=== PATIENT | male | born 1990 | race Caucasian/White ===

== ENCOUNTER 2021-08-07 23:46 | Emergency (ER) | payer SELFPAY ==
[2021-08-08] VITALS: TEMP 98.1; BMI 28.3
[2021-08-08] MEDS ORDERED: OXYMETAZOLINE 0.05% NASAL SOLUTION 15 ML BOTTLE NS ONE (01:15)
[2021-08-08 01:55] VITALS: BP 139/76; PULSE 100
[2021-08-08] MEDS ORDERED: TRANEXAMIC ACID 1000 MG/10 ML VIAL IVPUSH ONE (02:15)
[2021-08-08 03:25] LABS: BASO % 0.3 % (0-2.0); EOS % 1.5 % (0-4.5); HEMATOCRIT 43.7 % (35.4-49); HEMOGLOBIN 14.9 GM/dL (11.7-16.9); LYMPH % 16.5 % (8-40); MCH 32.3 pg (25.7-33.7); MONO % 7.8 % (3.8-10.2); NEUT % 73.9 % (42.8-82.8); PLATELET COUNT 210 10^3/uL (134-434); RDW 13.5 % (11.9-15.9); WHITE BLOOD COUNT 12.7 K/mm3 (4.0-10.0)
[2021-08-08 03:38] LABS: INR 1.05 (0.83-1.09); PROTHROMBIN TIME (PATIENT) 12.3 SEC (9.7-13.0)
[2021-08-08 03:41] LABS: ACTIVATED PTT 28.1 SECONDS (25.2-36.5)
[2021-08-08 03:42] LABS: CALCIUM 8.7 mg/dL (8.5-10.1)
[2021-08-08 03:43] LABS: ALBUMIN 3.5 g/dl (3.4-5.0); BLOOD UREA NITROGEN 32.3 mg/dL (7-18)
[2021-08-08 03:46] LABS: CREATININE 0.9 mg/dL (0.55-1.3)
[2021-08-08 03:47] LABS: BILIRUBIN,TOTAL 0.7 mg/dL (0.2-1); TOT PROT 7.2 g/dl (6.4-8.2)
== END 2021-08-08 04:38 | disposition home or self-care (01) ==
LOC: JER 23:46
PROC: 3E033NZ Introduction of Analgesics, Hypnotics, Sedatives into Peripheral Vein, Percutaneous Approach (ICD-10-PCS; principal; 2021-08-08)
DX: R04.0 Epistaxis (principal)
CPT/HCPCS: 36415; 80053; 85025; 85610; 85730; 99283-25